=== PATIENT | male | born 1970 | race Caucasian/White ===

== ENCOUNTER 2018-10-12 15:52 | Inpatient (IN) | payer OTHER ==
[~2018-10-12] VITALS: Ht 182.9 cm; Wt 160.8 kg
[2018-10-12 17:30] VITALS: BP 140/78; PULSE 93; RESP 18
--- NOTE | 2018-10-12 18:04 | NUR ---
Transfer Notes Patient is a transfer from [facility] chief complaint of BLE pain/swelling and cough. Arrived on [place] assisted by 2 test facility engineer, alert and oriented verbally responsive, complaining of BLE pain. Noted with a nonproductive cough, able to ambulate with assistance. Dr Marroquin at bedside, oriented to unit fall precautions in place.
[2018-10-12] MEDS ORDERED: ZIPR20CA24 PO (18:15)
[2018-10-12] MEDS ORDERED: MTF1000T PO (18:20)
[2018-10-12] MEDS ORDERED: TIOT18CA INHALATION (18:20)
[2018-10-12] MEDS ORDERED: ATOR40TA68 PO (18:20)
[2018-10-12] MEDS ORDERED: LANT3I SC (18:20)
[2018-10-12] MEDS ORDERED: ONDANSETRON 4 MG INJ IV PRN (18:30)
[2018-10-12] MEDS ORDERED: NACL 0.9% 3 ML SYG IV SCH (18:30)
[2018-10-12] MEDS ORDERED: ACETAMINOPHEN 325 MG TAB PO PRN (18:30)
--- NOTE | 2018-10-12 18:39 | HP ---
Date/Time of Note Date/Time of Note DATE: 10/12/18 TIME: 18:20 Assessment/Plan VTE Prophylaxis Pharmacological prophylaxis: LMWH Assessment/Plan Assessment/Plan 48 yo man history of IDDM, meth use, schizophrenia presents with R leg cellulitis and cough #R leg cellulitis - Cellulitis of R mid leg and purulent drainage from old wounds on feet. - Will start empiric vanco/zosyn - Consult podiatry for debridement. #Cough - CXR at outside ED unremarkable, but history is concerning... will repeat - Will resume previous spiriva - Albuterol prn #Hyperglycemia #IDDM - Resume home glargine 40 BID - Sliding scale - Will likely need mealtime aspart, will evaluate needs tomorrow. #HTN - Cont home losartan/HCTZ #Schizophrenia - Cont home geodon #Smoker - nicotine patch while inpatient DVT: lovenox GI: PPI HPI/ROS Admit Date/Time Admit Date/Time Oct 12, 2018 at 17:33 Hx of Present Illness Mr. Hernandez is a 48 yo man with history of IDDM who presents with two weeks of cough and leg pain. He was in his usual state of health until 2 weeks ago. At that time he developed cough productive of "fluorescent green" sputum and mild shortness of breath. He hasn't taken much for the cough except lozenges, which haven't helped. Also had intermittent fever during this time. He also developed R mid quintanilla redness and swelling and pain. 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 During this time he's had subjective fevers. He's had diabetes for several years and has multiple toe amputations on the L foot, on the R foot he had a great toe amputation. All are over a year old. He presented to the [place] ED where he was found to have glucose 575, otherwise labs unremarkable. He was given insulin and started on vanco/zosyn. His insurance capitated him to [facility] so he was transferred here for admission. ROS Denies weight loss, anorexia, fatigue, headache, vision changes, chest pain/pressure/palpitations, nausea, vomiting, diarrhea, constipation, abdominal pain, hematuria, dysuria, melena, hematochezia. He DOES report polydipsia and polyuria in the past few days. PMH/Family/Social Past Medical History IDDM Dyslipidemia COPD (previously on Spiriva, ran out a few months ago and hasn't refilled it) Schizophrenia on Geodon HTN Coded Allergies: No Known Drug Allergies (Verified Allergy, Unknown, 10/12/18) Past Surgical History Multiple toe amputations Social History Lives in transitional housing, unemployed. Alcohol Use: none Smoking Status: Current every day smoker (1 ppd) Drug Use: other (Methamphetamine, last used 2 weeks ago. ) Exam/Review of Systems Exam Exam Gen: Morbidly obese man well appearing no acute distress. Eyes: PERRL, no icterus HEENT: Clear oropharynx moist mucous membranes Neck: No lymphadenopathy. Slightly sore anteriorly Card: Regular rate and rhythm, no murmurs Pulm: Clear to auscultation bilaterally Abd: Soft, nontender, nondistended. Ext: L foot multiple toe amputations; small black eschar on dorsal surface near where 3rd toe should be. R mid quintanilla with tense edema, induration, erythema, tenderness. R foot with great toe amputation and black eschar. Skin: warm dry well perfused. REGINO PATEL MD Oct 12, 2018 18:32
[2018-10-12] MEDS: PIPER-TAZO 3.375 GM IV (PMX) 100 ML IVPB SCH (18:46)
[2018-10-12] MEDS ORDERED: GLUCOSE GEL 15 GRAM TUBE BUCCAL PRN (19:00)
[2018-10-12] MEDS ORDERED: VANCOMYCIN IV PER PHARMACY XX SCH (19:00)
[2018-10-12] MEDS ORDERED: GLUCAGON 1 MG INJ IM PRN (19:00)
[2018-10-12] MEDS ORDERED: ALBUTEROL/IPRATROPIUM (NEB) 3 ML AMP HHN PRN (19:00)
[2018-10-12] MEDS ORDERED: DEXTROSE 50% 50 ML SYRINGE IV PRN ×2 (19:00)
[2018-10-12] MEDS ORDERED: GLUCOSE GEL 15 GRAM TUBE PO PRN ×2 (19:00)
[2018-10-12 20:00] VITALS: BP 138/66; PULSE 95; RESP 18
[2018-10-12] MEDS ORDERED: VANCOMYCIN 2 GM in SOD CHLORIDE 0.9% 500 ML IVPB ONE (20:00)
[2018-10-12] MEDS ORDERED: morphine 4 MG/ML VIAL IV STA (20:04)
--- NOTE | 2018-10-12 20:22 | CONS ---
Date/Time of Note Date/Time of Note DATE: 10/12/18 TIME: 20:21 Assessment/Plan Assessment/Plan Assessment/Plan 1) Diabetic foot ulcer b/l 2) RLE cellulitis 3) Edema 4) Pain in limb RLE 5) DM2 with peripheral neuropathy 6) Hx of digit amputation b/l 7) Schizophrenia Plan: Consent obtained and performed b/l excisional debridement of skin/subQ of b/l foot ulcer sites using a rock picker scissor, and scalpel blade. Necrotic, hyperk eratotic tissue, and biofilm was removed from wound sites. Copious betadine and saline irrigation used at the wound sites. Less than 20cm2 area of debridement performed. Wound cultures obtained. Reviewed X-rays no soft tissue emphysema or acute fracture fragments appreciated. IV abx per recommendations. Keep heels offloaded with pillows. Non-invasive arterial studies ordered. Medical decisions, treatment, and plan coordinated with Dr. Carter. Results 24hrs Laboratory Tests Test 10/12/18 18:53 Bedside Glucose 320 H Consultation Date/Type/Reason Admit Date/Time Oct 12, 2018 at 17:33 Hx of Present Illness 48 y/o diabetic male with hx of schziophrenia and multiple foot surgeries presents to the floor with complaints of bilateral scab formations and purulent drainage to the right great toe amputation site. Patient states that for the past 6 months noticed worsening changes to the right foot wound and to lesser degree of his left foot. Patient states that when he stands and walks a lot he notices increased drainage to the right foot. Patient states he was in skilled nursing and noted that they were healed at that point during his incarceration. Patient reports throbbing pain to the right foot which is worsened with direct pressure and relieved with rest. ROS: Denies weight loss, anorexia, fatigue, headache, vision changes, chest pain/pressure/palpitations, nausea, vomiting, diarrhea, constipation, abdominal pain, hematuria, dysuria, melena, hematochezia. He DOES report polydipsia and polyuria in the past few days. Past Medical History IDDM Dyslipidemia COPD (previously on Spiriva, ran out a few months ago and hasn't refilled it) Schizophrenia on Geodon HTN Medications Current Medications IV Flush (NS 3 ml) 3 ml PER PROTOCOL IV ; Start 10/12/18 at 18:30 Ondansetron HCl (Zofran Inj) 4 mg Q6H PRN IV NAUSEA AND/OR VOMITING; Start 10/12/18 at 18:30 Acetaminophen (Tylenol Tab) 650 mg Q6H PRN PO PAIN; Start 10/12/18 at 18:30 Acetaminophen/ Hydrocodone Bitart ([place] (5/325)) 1 tab Q6H PRN PO BREAKTHROUGH PAIN; Start 10/12/18 at 18:30 Enoxaparin Sodium (Lovenox) 30 mg DAILY SC ; Start 10/13/18 at 09:00 Atorvastatin Calcium (Lipitor) 40 mg QHS PO ; Start 10/12/18 at 21:00 Tiotropium [place] (Spiriva) 1 inh DAILY INH ; Start 10/13/18 at 09:00 Ziprasidone (Geodon) 40 mg BID PO ; Start 10/12/18 at 21:00 Diagnostic Test (Pha) (Accu-Chek) 1 ea 02 XX ; Start 10/13/18 at 02:00 Insulin Glargine (Lantus) 40 units BID SC ; Start 10/12/18 at 21:00 Insulin Aspart (Novolog Insulin Pen) NOVOLOG *MODERATE* ALGORITHM WITH MEALS BEDTIME SC ; Start 10/12/18 at 21:00 Piperacillin Sod/ Tazobactam Sod 100 ml @ 200 mls/hr Q6 IVPB Last administered on 10/12/18at 18:46; Admin Dose 200 MLS/HR; Start 10/12/18 at 19:00 Vancomycin HCl (Vanco Iv Per Pharmacy) VANCOMYCIN PER PHARMACY PER PROTOCOL XX ; Start 10/12/18 at 19:00 Albuterol/ Ipratropium (Duoneb) 3 ml Q4H RESP THERAPY PRN HHN SHORTNESS OF BREATH; Start 10/12/18 at 19:00 Losartan Potassium (Cozaar) 50 mg DAILY PO ; Start 10/13/18 at 09:00 Hydrochlorothiazide (Hydrochlorothiazide) 12.5 mg DAILY PO ; Start 10/13/18 at 09:00 Nicotine (Nicoderm 21 Mg/ 24hr) 1 patch DAILY TRANSDERM ; Start 10/12/18 at 19:00 Miscellaneous Information 1 ea NOTE XX ; Start 10/12/18 at 19:00 Glucose (Glutose) 15 gm Q15M PRN PO DECREASED GLUCOSE; Start 10/12/18 at 19:00 Glucose (Glutose) 22.5 gm Q15M PRN PO DECREASED GLUCOSE; Start 10/12/18 at 19:00 Dextrose (D50w Syringe) 25 ml Q15M PRN IV DECREASED GLUCOSE; Start 10/12/18 at 19:00 Dextrose (D50w Syringe) 50 ml Q15M PRN IV DECREASED GLUCOSE; Start 10/12/18 at 19:00 Glucagon (Glucagen) 1 mg Q15M PRN IM DECREASED GLUCOSE; Start 10/12/18 at 19:00 Glucose (Glutose) 15 gm Q15M PRN BUCCAL DECREASED GLUCOSE; Start 10/12/18 at 19:00 Vancomycin HCl 2 gm/Sodium Chloride 500 ml @ 125 mls/hr ONCE ONCE IVPB ; Start 10/12/18 at 20:00; Stop 10/12/18 at 23:59 Influenza Virus Vaccine Quadrival (Fluzone) 0.5 ml ONCE ONCE IM* ; Start 10/13/18 at 09:00; Stop 10/13/18 at 09:01 Allergies: Coded Allergies: No Known Drug Allergies (Verified Allergy, Unknown, 10/12/18) Past Surgical History Multiple digit amputations Family History Significant Family History: no pertinent family hx Social History Alcohol Use: none Smoking Status: Current every day smoker (1 ppd) Drug Use: other (Methamphetamine, last used 2 weeks ago. ) Exam/Review of Systems Vital Signs Vitals Vital Signs Date Temp Pulse Resp B/P (MAP) Pulse Ox O2 O2 Flow FiO2 Time Delivery Rate 10/12/18 98.2 93 18 140/78 90 Room Air 17:30 (98) Exam DP/PT and popliteal pulses weakly palpable Right leg erythema noted at mid tibial region Right hallux with eschar formation and upon post debridement a full thickness ulcer 2.5 x 1.8 x 0.3cm. Unable to express purulence, no proximal streaking noted, no probing to bone. Surrounding HPK tissue noted Left dorsal foot with eschar formation and upon post debridement a full thickness ulcer 0.6 x 0.4 x 0.2cm. Unable to express purulence, no proximal streaking noted, no probing to bone. Surrounding HPK tissue noted Absent protective sensations R hallux amputation noted L hallux and lesser digit amputations appreciated Mycotic toe nails Pain on palpation to right hallux wound Muscle strength 5/5 in all compartments of the foot. Medications Medications Current Medications IV Flush (NS 3 ml) 3 ml PER PROTOCOL IV ; Start 10/12/18 at 18:30 Ondansetron HCl (Zofran Inj) 4 mg Q6H PRN IV NAUSEA AND/OR VOMITING; Start 10/12/18 at 18:30 Acetaminophen (Tylenol Tab) 650 mg Q6H PRN PO PAIN; Start 10/12/18 at 18:30 Acetaminophen/ Hydrocodone Bitart ([place] (5/325)) 1 tab Q6H PRN PO BREAKTHROUGH PAIN; Start 10/12/18 at 18:30 Enoxaparin Sodium (Lovenox) 30 mg DAILY SC ; Start 10/13/18 at 09:00 Atorvastatin Calcium (Lipitor) 40 mg QHS PO ; Start 10/12/18 at 21:00 Tiotropium [place] (Spiriva) 1 inh DAILY INH ; Start 10/13/18 at 09:00 Ziprasidone (Geodon) 40 mg BID PO ; Start 10/12/18 at 21:00 Diagnostic Test (Pha) (Accu-Chek) 1 ea 02 XX ; Start 10/13/18 at 02:00 Insulin Glargine (Lantus) 40 units BID SC ; Start 10/12/18 at 21:00 Insulin Aspart (Novolog Insulin Pen) NOVOLOG *MODERATE* ALGORITHM WITH MEALS BEDTIME SC ; Start 10/12/18 at 21:00 Piperacillin Sod/ Tazobactam Sod 100 ml @ 200 mls/hr Q6 IVPB Last administered on 10/12/18at 18:46; Admin Dose 200 MLS/HR; Start 10/12/18 at 19:00 Vancomycin HCl (Vanco Iv Per Pharmacy) VANCOMYCIN PER PHARMACY PER PROTOCOL XX ; Start 10/12/18 at 19:00 Albuterol/ Ipratropium (Duoneb) 3 ml Q4H RESP THERAPY PRN HHN SHORTNESS OF BREATH; Start 10/12/18 at 19:00 Losartan Potassium (Cozaar) 50 mg DAILY PO ; Start 10/13/18 at 09:00 Hydrochlorothiazide (Hydrochlorothiazide) 12.5 mg DAILY PO ; Start 10/13/18 at 09:00 Nicotine (Nicoderm 21 Mg/ 24hr) 1 patch DAILY TRANSDERM ; Start 10/12/18 at 19:00 Miscellaneous Information 1 ea NOTE XX ; Start 10/12/18 at 19:00 Glucose (Glutose) 15 gm Q15M PRN PO DECREASED GLUCOSE; Start 10/12/18 at 19:00 Glucose (Glutose) 22.5 gm Q15M PRN PO DECREASED GLUCOSE; Start 10/12/18 at 19:00 Dextrose (D50w Syringe) 25 ml Q15M PRN IV DECREASED GLUCOSE; Start 10/12/18 at 19:00 Dextrose (D50w Syringe) 50 ml Q15M PRN IV DECREASED GLUCOSE; Start 10/12/18 at 19:00 Glucagon (Glucagen) 1 mg Q15M PRN IM DECREASED GLUCOSE; Start 10/12/18 at 19:00 Glucose (Glutose) 15 gm Q15M PRN BUCCAL DECREASED GLUCOSE; Start 10/12/18 at 19:00 Vancomycin HCl 2 gm/Sodium Chloride 500 ml @ 125 mls/hr ONCE ONCE IVPB ; Start 10/12/18 at 20:00; Stop 10/12/18 at 23:59 Influenza Virus Vaccine Quadrival (Fluzone) 0.5 ml ONCE ONCE IM* ; Start 10/13/18 at 09:00; Stop 10/13/18 at 09:01 POOL CASTELLANOS DPM Oct 12, 2018 20:22
[2018-10-12] MEDS: ATORVASTATIN 40 MG TAB PO SCH (20:45)
[2018-10-12] MEDS: ZIPRASIDONE 20 MG CAP PO SCH (20:45)
--- NOTE | 2018-10-12 21:39 | NUR ---
SEEN AND DEBRIDEMENT OF RIGHT FOOT WAS DONE BY JASMIN LANZA ALEX AROUND 2019. PAIN MEDICATION WAS ADMINISTERED PER ORDERED DURING THE PROCEDURE. WOUND SPECIMEN WAS SENT TO THE LABORATORY FOR CULTURE AND WOUND CARE/DRESSING WAS ORDERED. PATIENT TOLERATED THE PROCEDURE WELL. DINNER TRAY WAS SERVED AFTER AND INSTRUCTED THE PATIENT THAT HIS BLOOD SUGAR WILL CHECKED AFTER 2 HOURS.
--- NOTE | 2018-10-12 21:49 | NUR ---
VANCOMYCIN PER RX Current ABXs: VANCOMYCIN, ZOSYN 48 yo male; HT 6'; WT 160.8 KG Levels/Significant Labs: 10/12 SCR 1.4; WBC 7.7 Comments/Plan: VANCO 1 GM IV X 1 (GIVEN @[facility] ER), THEN ADDITIONAL 2 GM FOR TOTAL LD 3 GM. THEN START VANCO 2 GM IV Q12H.
[2018-10-12] MEDS: NICOTINE (21 MG/24 HR) PATCH TRANSDERM SCH (22:12)
[2018-10-12] MEDS: INSULIN ASPART [NOVOLOG] 3 ML PEN SC SCH (22:17)
[2018-10-12] MEDS: INSULIN GLARGINE [LANTus] (100 UNITS/ML) SYG SC SCH (22:18)
[2018-10-13] MEDS: PIPER-TAZO 3.375 GM IV (PMX) 100 ML IVPB SCH ×4 (00:31→17:27)
[2018-10-13 02:00] VITALS: BP 115/66; PULSE 87; RESP 18
[2018-10-13] MEDS: ACCU-CHEK XX SCH (02:00)
--- NOTE | 2018-10-13 04:15 | NUR ---
SHIFT REPORT: Patient remains stable up to this time. no s/sx of hypo/hyperglycemia was noted. continue on IV antibiotic Vanco and Zosyn as ordered with no adverse reaction was noted.Patient was able to sleep comfortably. denies pain and discomfort at this time. Instructed to call for assistance bed alarm is on. hourly rounding was done. will continue to monitor.
[2018-10-13 07:44] VITALS: BP 133/69; PULSE 75; RESP 20
[2018-10-13] MEDS: INSULIN ASPART [NOVOLOG] 3 ML PEN SC SCH ×5 (08:26→20:37)
[2018-10-13] MEDS: ENOXAPARIN 30 MG/0.3 ML SYG SC SCH (08:27)
[2018-10-13] MEDS: INSULIN GLARGINE [LANTus] (100 UNITS/ML) SYG SC SCH ×2 (08:27→20:38)
[2018-10-13] MEDS: LOSARTAN 50 MG TAB PO SCH (08:28)
[2018-10-13] MEDS: TIOTROPIUM 18 MCG CAPSULE INHA DEV INH SCH (08:28)
[2018-10-13] MEDS: NICOTINE (21 MG/24 HR) PATCH TRANSDERM SCH (08:29)
[2018-10-13] MEDS: VANCOMYCIN 2 GM in SOD CHLORIDE 0.9% 500 ML IVPB SCH ×2 (08:31→20:32)
[2018-10-13] MEDS: ZIPRASIDONE 20 MG CAP PO SCH ×2 (08:31→20:34)
[2018-10-13] MEDS: SODIUM HYPOCHLORITE (1/40) 1 APPLIC BTL IRR SCH (08:48)
[2018-10-13] MEDS ORDERED: INFLUENZA VIRUS VACCINE 0.5 ML (DISPENSING) IM* ONE (09:00)
[2018-10-13] MEDS: HYDROCHLOROTHIAZIDE 12.5 MG CAP PO SCH (09:27)
[2018-10-13] MEDS ORDERED: GUAIFENESIN 20 MG/ML 5ML CUP PO PRN (11:30)
--- NOTE | 2018-10-13 17:07 | PN ---
Date/Time of Note Date/Time of Note DATE: 10/13/18 TIME: 17:02 Assessment/Plan VTE Prophylaxis Risk score (from Ns)>0 risk: 3 SCD applied (from Ns): No SCD contraindicated: low risk/ambulating Pharmacological prophylaxis: LMWH Pharm contraindication: low risk/ambulating Lines/Catheters IV Catheter Type (from [facility] [place]): [place] Assessment/Plan Hospital Course 48 yo man history of IDDM, meth use, schizophrenia presents with R leg cellulitis and cough #R leg cellulitis - Cellulitis of R mid leg and purulent drainage from old wounds on feet. - Empiric vanco/zosyn - Debrided by Dr Lucia 10/12, pending culture sensitivities - arterial studies good flow #Cough - CXR with possible early infiltrate - Will resume previous spiriva - Albuterol prn - Antibiotics as above #Hyperglycemia #IDDM - Resume home glargine 40 BID - Sliding scale - Mealtime aspart #HTN - Cont home losartan/HCTZ #Schizophrenia - Cont home geodon #Smoker - nicotine patch while inpatient DVT: lovenox GI: PPI Result Diagram: 10/13/18 0533 10/13/18 0533 Subjective 24 Hr Interval Summary Free Text/Dictation No acute overnight events. Patient feeling well overall. Still with cough and sputum. He is ambulating to restroom okay without needing walker. Exam/Review of Systems Vital Signs Vitals Vital Signs Date Temp Pulse Resp B/P (MAP) Pulse Ox O2 O2 Flow FiO2 Time Delivery Rate 10/13/18 97.8 75 20 133/69 95 Room Air 07:44 (90) Intake and Output 10/12/18 10/12/18 10/13/18 1515:00 23:00 07:00 IntakeIntake Total 580 ml 820 ml OutputOutput Total 300 ml BalanceBalance 580 ml 520 ml Exam Gen: Morbidly obese man well appearing no acute distress. Eyes: PERRL, no icterus HEENT: Clear oropharynx moist mucous membranes Neck: No lymphadenopathy. Slightly sore anteriorly Card: Regular rate and rhythm, no murmurs Pulm: Clear to auscultation bilaterally Abd: Soft, nontender, nondistended. Ext: L foot multiple toe amputations; clean based ulcer at 3rd toe. R mid quintanilla with tense edema, induration, erythema, tenderness. R foot with great toe amputation and clean based ulcer. Skin: warm dry well perfused. Medications Medications Current Medications IV Flush (NS 3 ml) 3 ml PER PROTOCOL IV ; Start 10/12/18 at 18:30 Ondansetron HCl (Zofran Inj) 4 mg Q6H PRN IV NAUSEA AND/OR VOMITING; Start 10/12/18 at 18:30 Acetaminophen (Tylenol Tab) 650 mg Q6H PRN PO PAIN; Start 10/12/18 at 18:30 Acetaminophen/ Hydrocodone Bitart ([place] (5/325)) 1 tab Q6H PRN PO BREAKTHROUGH PAIN; Start 10/12/18 at 18:30 Enoxaparin Sodium (Lovenox) 30 mg DAILY SC Last administered on 10/13/18at 08:27; Admin Dose 30 MG; Start 10/13/18 at 09:00 Atorvastatin Calcium (Lipitor) 40 mg QHS PO Last administered on 10/12/18at 20:45; Admin Dose 40 MG; Start 10/12/18 at 21:00 Tiotropium [place] (Spiriva) 1 inh DAILY INH Last administered on 10/13/18at 08:28; Admin Dose 1 INH; Start 10/13/18 at 09:00 Ziprasidone (Geodon) 40 mg BID PO Last administered on 10/12/18at 20:45; Admin Dose 40 MG; Start 10/12/18 at 21:00 Diagnostic Test (Pha) (Accu-Chek) 1 ea 02 XX Last administered on 10/13/18at 02:00; Admin Dose 1 EA; Start 10/13/18 at 02:00 Insulin Glargine (Lantus) 40 units BID SC Last administered on 10/13/18at 08:27; Admin Dose 40 UNITS; Start 10/12/18 at 21:00 Insulin Aspart (Novolog Insulin Pen) NOVOLOG *MODERATE* ALGORITHM WITH MEALS BEDTIME SC Last administered on 10/13/18at 12:30; Admin Dose 10 UNIT; Start 10/12/18 at 21:00 Piperacillin Sod/ Tazobactam Sod 100 ml @ 200 mls/hr Q6 IVPB Last administered on 10/13/18at 12:32; Admin Dose 200 MLS/HR; Start 10/12/18 at 19:00 Vancomycin HCl (Vanco Iv Per Pharmacy) VANCOMYCIN PER PHARMACY PER PROTOCOL XX ; Start 10/12/18 at 19:00 Albuterol/ Ipratropium (Duoneb) 3 ml Q4H RESP THERAPY PRN HHN SHORTNESS OF BREATH; Start 10/12/18 at 19:00 Losartan Potassium (Cozaar) 50 mg DAILY PO Last administered on 10/13/18at 08:28; Admin Dose 50 MG; Start 10/13/18 at 09:00 Hydrochlorothiazide (Hydrochlorothiazide) 12.5 mg DAILY PO Last administered on 10/13/18at 09:27; Admin Dose 12.5 MG; Start 10/13/18 at 09:00 Nicotine (Nicoderm 21 Mg/ 24hr) 1 patch DAILY TRANSDERM Last administered on at 08:29; Admin Dose 1 PATCH; Start 10/12/18 at 19:00 Miscellaneous Information 1 ea NOTE XX ; Start 10/12/18 at 19:00 Glucose (Glutose) 15 gm Q15M PRN PO DECREASED GLUCOSE; Start 10/12/18 at 19:00 Glucose (Glutose) 22.5 gm Q15M PRN PO DECREASED GLUCOSE; Start 10/12/18 at 19:00 Dextrose (D50w Syringe) 25 ml Q15M PRN IV DECREASED GLUCOSE; Start 10/12/18 at 19:00 Dextrose (D50w Syringe) 50 ml Q15M PRN IV DECREASED GLUCOSE; Start 10/12/18 at 19:00 Glucagon (Glucagen) 1 mg Q15M PRN IM DECREASED GLUCOSE; Start 10/12/18 at 19:00 Glucose (Glutose) 15 gm Q15M PRN BUCCAL DECREASED GLUCOSE; Start 10/12/18 at 19:00 Vancomycin HCl 2 gm/Sodium Chloride 500 ml @ 125 mls/hr Q12H IVPB Last administered on 10/13/18at 08:31; Admin Dose 125 MLS/HR; Start 10/13/18 at 08:00 Sodium Hypochlorite ([place]akin'S (Dilute )) 1 applic DAILY IRR Last administered on 10/13/18at 08:48; Admin Dose 1 APPLIC; Start 10/13/18 at 09:00 Miscellaneous Information (*Rx Drug Level Order Reminder*) VANCOMYCIN TROUGH AT 0700 ONCE ONCE XX ; Start 10/14/18 at 07:00; Stop 10/14/18 at 07:01 Guaifenesin (Robitussin Liquid Cup) 200 mg Q4H PRN PO cough; Start 10/13/18 at 11:30 REGINO PATEL MD Oct 13, 2018 17:07
--- NOTE | 2018-10-13 18:55 | NUR ---
End of Shift Notes S/P I&D with Dr Lucia, wound care provided as ordered, kept clean and dry hourly roundings done, fall precautions in place. No signs of distress, vitals stable.
[2018-10-13 20:24] VITALS: BP 134/65; PULSE 98; RESP 18
[2018-10-13] MEDS: ATORVASTATIN 40 MG TAB PO SCH (20:33)
[2018-10-14] MEDS: PIPER-TAZO 3.375 GM IV (PMX) 100 ML IVPB SCH ×5 (00:11→23:24)
[2018-10-14 01:50] VITALS: BP 125/66; PULSE 91; RESP 18
[2018-10-14] MEDS: ACCU-CHEK XX SCH (02:14)
--- NOTE | 2018-10-14 04:34 | NUR ---
SHIFT REPORT: Patient remains stable up to this time.Continue on IV antibiotic with no adverse reaction noted. Patient refused [place] last night even after benefits was explained. no s/sx of hypo/hyperglycemia.instructed to call for assistance.call light placed within reach.will continue to monitor.
[2018-10-14 07:29] VITALS: BP 138/73; PULSE 82; RESP 20
--- NOTE | 2018-10-14 08:31 | NUR ---
RX NOTE RE: VANCOMYCIN DAY#3 OF VANCOMYCIN PER RX BUN/SCR: 07/11. TMAX: 98.7 WBC: 8.6 ALLERGIES: NKDA OTHER ABX: ZOSYN VANCO TROUGH: 22.2 VANCO TROUGH IS SUPRATHERAPEUTIC. HOLD VANCO 2GM IVPB DOSE AT 0800. ADJUST DOSE TO VANCOMYCIN 1.25GM IV [id number] TO START LATER TODAY. PHARMACY TO FOLLOW.
[2018-10-14] MEDS: INSULIN ASPART [NOVOLOG] 3 ML PEN SC SCH ×7 (08:33→21:27)
[2018-10-14] MEDS: NICOTINE (21 MG/24 HR) PATCH TRANSDERM SCH (08:50)
[2018-10-14] MEDS: TIOTROPIUM 18 MCG CAPSULE INHA DEV INH SCH (08:51)
[2018-10-14] MEDS: LOSARTAN 50 MG TAB PO SCH (08:55)
[2018-10-14] MEDS: HYDROCHLOROTHIAZIDE 12.5 MG CAP PO SCH (08:55)
[2018-10-14] MEDS: SODIUM HYPOCHLORITE (1/40) 1 APPLIC BTL IRR SCH (08:57)
[2018-10-14] MEDS: ZIPRASIDONE 20 MG CAP PO SCH ×3 (09:00→21:28)
[2018-10-14] MEDS: INSULIN GLARGINE [LANTus] (100 UNITS/ML) SYG SC SCH ×2 (09:16→21:24)
[2018-10-14] MEDS: ENOXAPARIN 30 MG/0.3 ML SYG SC SCH (09:16)
[2018-10-14 13:19] VITALS: BP 111/66; PULSE 85; RESP 18
--- NOTE | 2018-10-14 14:25 | PN ---
Date/Time of Note Date/Time of Note DATE: 10/14/18 TIME: 14:13 Assessment/Plan VTE Prophylaxis Risk score (from Nsg)>0 risk: 3 SCD applied (from Ns): No SCD contraindicated: other (no) Pharmacological prophylaxis: LMWH Lines/Catheters IV Catheter Type (from Nrs): Saline Lock Assessment/Plan Hospital Course 48 yo man history of IDDM, meth use, schizophrenia presents with R leg cell ulitis and cough #R leg cellulitis - Cellulitis of R mid leg and purulent drainage from old wounds on feet. - Empiric vanco/zosyn - Debrided by Dr Lucia 10/12, pending culture sensitivities - arterial studies good flow #Cough - CXR with possible early infiltrate - Will resume previous spiriva - Albuterol prn, guaifenasin prn. - Low suspicion for pneumonia, on zosyn for cellulitis #Hyperglycemia #IDDM - home glargine 40 BID - Sliding scale - Mealtime aspart #HTN - Cont home losartan/HCTZ #Schizophrenia - Cont home geodon #Smoker - nicotine patch while inpatient DVT: lovenox GI: PPI Result Diagram: 10/14/184 10/14/18 0444 Subjective 24 Hr Interval Summary Free Text/Dictation No acute overnight events. Patient is doing well. Still reports cough with green sputum. Hasn't requested guaifenesin for it. Reports that calf pain is still about the same. Able to ambulate to bathroom. Exam/Review of Systems Vital Signs Vitals Vital Signs Date Temp Pulse Resp B/P (MAP) Pulse Ox O2 O2 Flow FiO2 Time Delivery Rate 10/14/18 98.4 85 18 111/66 95 Room Air 13:19 (81) Intake and Output 10/13/18 10/13/18 10/14/18 1515:00 23:00 07:00 IntakeIntake Total 1640 ml 580 ml 700 ml BalanceBalance 1640 ml 580 ml 700 ml Exam Gen: Morbidly obese man well appearing no acute distress. Eyes: PERRL, no icterus HEENT: Clear oropharynx moist mucous membranes Neck: No lymphadenopathy. Slightly sore anteriorly Card: Regular rate and rhythm, no murmurs Pulm: Clear to auscultation bilaterally Abd: Soft, nontender, nondistended. Ext: L foot multiple toe amputations; clean based ulcer at 3rd toe. R mid quintanilla with tense edema, induration, erythema, tenderness. R foot with great toe amputation and clean based ulcer. Skin: warm dry well perfused. Medications Medications Current Medications IV Flush (NS 3 ml) 3 ml PER PROTOCOL IV ; Start 10/12/18 at 18:30 Ondansetron HCl (Zofran Inj) 4 mg Q6H PRN IV NAUSEA AND/OR VOMITING; Start 10/12/18 at 18:30 Acetaminophen (Tylenol Tab) 650 mg Q6H PRN PO PAIN; Start 10/12/18 at 18:30 Acetaminophen/ Hydrocodone Bitart ([place] (5/325)) 1 tab Q6H PRN PO BREAKTHROUGH PAIN; Start 10/12/18 at 18:30 Enoxaparin Sodium (Lovenox) 30 mg DAILY SC Last administered on 10/14/18 09:16; Admin Dose 30 MG; Start 10/13/18 at 09:00 Atorvastatin Calcium (Lipitor) 40 mg QHS PO Last administered on 10/13/18 20:33; Admin Dose 40 MG; Start 10/12/18 at 21:00 Tiotropium [place] (Spiriva) 1 inh DAILY INH Last administered on 10/14/18 08:51; Admin Dose 1 INH; Start 10/13/18 at 09:00 Ziprasidone (Geodon) 40 mg BID PO Last administered on 10/12/18at 20:45; Admin Dose 40 MG; Start 10/12/18 at 21:00 Diagnostic Test (Pha) (Accu-Chek) 1 ea 02 XX Last administered on 10/14/18 02:14; Admin Dose 1 EA; Start 10/13/18 at 02:00 Insulin Glargine (Lantus) 40 units BID SC Last administered on 10/14/18 09:16; Admin Dose 40 UNITS; Start 10/12/18 at 21:00 Insulin Aspart (Novolog Insulin Pen) NOVOLOG *MODERATE* ALGORITHM WITH MEALS BEDTIME SC Last administered on 10/14/18 12:30; Admin Dose 6 UNIT; Start 10/12/18 at 21:00 Piperacillin Sod/ Tazobactam Sod 100 ml @ 200 mls/hr Q6 IVPB Last administered on 10/14/18 12:23; Admin Dose 200 MLS/HR; Start 10/12/18 at 19:00 Vancomycin HCl (Vanco Iv Per Pharmacy) VANCOMYCIN PER PHARMACY PER PROTOCOL XX ; Start 10/12/18 at 19:00 Albuterol/ Ipratropium (Duoneb) 3 ml Q4H RESP THERAPY PRN HHN SHORTNESS OF BREATH; Start 10/12/18 at 19:00 Losartan Potassium (Cozaar) 50 mg DAILY PO Last administered on 10/14/18at 08:55; Admin Dose 50 MG; Start 10/13/18 at 09:00 Hydrochlorothiazide (Hydrochlorothiazide) 12.5 mg DAILY PO Last administered on 10/14/18at 08:55; Admin Dose 12.5 MG; Start 10/13/18 at 09:00 Nicotine (Nicoderm 21 Mg/ 24hr) 1 patch DAILY TRANSDERM Last administered on 10/14/18at 08:50; Admin Dose 1 PATCH; Start 10/12/18 at 19:00 Miscellaneous Information 1 ea NOTE XX ; Start 10/12/18 at 19:00 Glucose (Glutose) 15 gm Q15M PRN PO DECREASED GLUCOSE; Start 10/12/18 at 19:00 Glucose (Glutose) 22.5 gm Q15M PRN PO DECREASED GLUCOSE; Start 10/12/18 at 19:00 Dextrose (D50w Syringe) 25 ml Q15M PRN IV DECREASED GLUCOSE; Start 10/12/18 at 19:00 Dextrose (D50w Syringe) 50 ml Q15M PRN IV DECREASED GLUCOSE; Start 10/12/18 at 19:00 Glucagon (Glucagen) 1 mg Q15M PRN IM DECREASED GLUCOSE; Start 10/12/18 at 19:00 Glucose (Glutose) 15 gm Q15M PRN BUCCAL DECREASED GLUCOSE; Start 10/12/18 at 19:00 Sodium Hypochlorite (Dakin'S (Dilute 140)) 1 applic DAILY IRR Last administered on 10/14/18at 08:57; Admin Dose 1 APPLIC; Start 10/13/18 at 09:00 Guaifenesin (Robitussin Liquid Cup) 200 mg Q4H PRN PO cough; Start 10/13/18 at 11:30 Insulin Aspart (Novolog Insulin Pen) 10 unit WITH MEALS SC Last administered on 10/14/18at 12:30; Admin Dose 10 UNIT; Start 10/13/18 at 18:00 Vancomycin HCl 1.25 gm/Sodium Chloride 250 ml @ 83.333 mls/ hr Q12H IVPB ; Start 10/14/18 at 18:00 REGINO PATEL MD Oct 14, 2018 14:23
--- NOTE | 2018-10-14 18:20 | NUR ---
SHIFT SUMMARY: SEEN BY DR. CASTELLANOS AT BEDSIDE. DRESSING CHANGED TO BILATERAL FOOT. PT COMFORTABLE DURING PROCEDURE. NO COMPLAINTS NOTED DURING SHIFT. HOURLY ROUNDING RENDERED. SAFETY PRECAUTIONS MAINTAINED.NO SIGNIFICANT CHANGE OF CONDITION .ALL NEEDS ATTENDED AND RENDERED. CALL LIGHT WITHIN REACH.
[2018-10-14] MEDS: VANCOMYCIN 1.25 GM in SOD CHLORIDE 0.9% 250 ML IVPB SCH (18:36)
[2018-10-14 20:00] VITALS: BP 136/66; PULSE 82; RESP 19
--- NOTE | 2018-10-14 20:02 | PN ---
Date/Time of Note Date/Time of Note DATE: 10/14/18 TIME: 20:02 Assessment/Plan VTE Prophylaxis Risk score (from Nsg)>0 risk: 3 Pharmacological prophylaxis: heparin Lines/Catheters IV Catheter Type (from Nrsg): Saline Lock Assessment/Plan Hospital Course 48 y/o diabetic male with hx of schziophrenia and multiple foot surgeries presents to the floor with complaints of bilateral scab formations and purulent drainage to the right great toe amputation site. Patient states that for the past 6 months noticed worsening changes to the right foot wound and to lesser degree of his left foot. Patient states that when he stands and walks a lot he notices increased drainage to the right foot. Patient states he was in [facility] and noted that they were healed at that point during his incarceration. Patient reports throbbing pain to the right foot which is worsened with direct pressure and relieved with rest. Assessment/Plan 1) Diabetic foot ulcer RLE, left resolving 2) RLE cellulitis - improving 3) Edema 4) onyhcmoycosis 5) Pain in limb RLE 6) DM2 with peripheral neuropathy 7) Hx of digit amputation b/l 8) Schizophrenia Plan: excisional debridement of skin/subQ of right foot ulcer site using a pick up driver and scissor. Necrotic, hyperkeratotic tissue, and biofilm was removed from wound sites. Copious betadine and saline irrigation used at the wound sites. Less than 20cm2 area of debridement performed. Wound cultures showing gram neg april, strep agalactiae group B. Reviewed X-rays no soft tissue emphysema or acute fracture fragments appreciated. IV abx per recommendations. Keep heels offlo aded with pillows. Negative DVT, and hemodynamically stable arterial blood flow on noted on non-invasive arterial studies. Medical decisions, treatment, and plan coordinated with Dr. Carter. Result Diagram: 10/14/18 0444 10/14/18 0444 Results 24hrs Laboratory Tests Test 10/13/18 20:33 10/13/18 21:40 10/14/18 02:13 10/14/18 04:44 Bedside Glucose 308 H 211 144 White Blood 8.6 Count Red Blood Count 5.04 Hemoglobin 13.7 L Hematocrit 43.4 Mean Corpuscular 86.1 Volume Mean Corpuscular 27.2 L Hemoglobin Mean Corpuscular 31.6 L Hemoglobin Tamanna nt Red Cell 14.3 Distribution Width Platelet Count 334 Mean Platelet 9.4 Volume Immature 2.900 H Granulocytes % Neutrophils % 48.1 Lymphocytes % 35.5 Monocytes % 8.0 Eosinophils % 4.1 Basophils % 1.4 Nucleated Red 0.0 Blood Cells % Immature 0.250 H Granulocytes # Neutrophils # 4.2 Lymphocytes # 3.1 H Monocytes # 0.7 Eosinophils # 0.4 Basophils # 0.1 Nucleated Red 0.0 Blood Cells # Sodium Level 142 Potassium Level 4.5 Chloride Level 97 Carbon Dioxide 37 H Level Anion Gap 8 Blood Urea 22 H Nitrogen Creatinine 1.26 H Est Glomerular > 60 Filtrat Rate mL/min Glucose Level 135 # Calcium Level 9.3 Phosphorus Level 5.3 H Magnesium Level 1.9 Test 10/14/18 07:03 10/14/18 08:12 10/14/18 12:22 10/14/18 17:35 Vancomycin Level 22.2 *H Trough Bedside Glucose 160 232 H 162 Subjective 24 Hr Interval Summary Free Text/Dictation No acute events overnight. Exam/Review of Systems Vital Signs Vitals Vital Signs Date Temp Pulse Resp B/P (MAP) Pulse Ox O2 O2 Flow FiO2 Time Delivery Rate 10/14/18 98.4 85 18 111/66 95 Room Air 13:19 (81) Intake and Output 10/13/18 10/13/18 10/14/18 1515:00 23:00 07:00 IntakeIntake Total 1640 ml 580 ml 700 ml BalanceBalance 1640 ml 580 ml 700 ml Exam DP/PT and popliteal pulses weakly palpable Right leg erythema noted at mid tibial region Right hallux with eschar formation and upon post debridement a full thickness ulcer 1.5 x 1.4 x 0.2cm. Unable to express purulence, no proximal streaking noted, no probing to bone. Surrounding HPK tissue noted Left dorsal foot ulcer showing signs of epithelialization Absent protective sensations R hallux amputation noted L hallux and lesser digit amputations appreciated Mycotic toe nails Pain on palpation to right hallux wound Muscle strength 5/5 in all compartments of the foot. Medications Medications Current Medications IV Flush (NS 3 ml) 3 ml PER PROTOCOL IV ; Start 10/12/18 at 18:30 Ondansetron HCl (Zofran Inj) 4 mg Q6H PRN IV NAUSEA AND/OR VOMITING; Start 10/12/18 at 18:30 Acetaminophen (Tylenol Tab) 650 mg Q6H PRN PO PAIN; Start 10/12/18 at 18:30 Acetaminophen/ Hydrocodone Bitart ([place] (5/325)) 1 tab Q6H PRN PO BREAKTHROUGH PAIN; Start 10/12/18 at 18:30 Enoxaparin Sodium (Lovenox) 30 mg DAILY SC Last administered on 10/14/18 09:16; Admin Dose 30 MG; Start 10/13/18 at 09:00 Atorvastatin Calcium (Lipitor) 40 mg QHS PO Last administered on 10/13/18 20:33; Admin Dose 40 MG; Start 10/12/18 at 21:00 Tiotropium [place] (Spiriva) 1 inh DAILY INH Last administered on 10/14/18 08:51; Admin Dose 1 INH; Start 10/13/18 at 09:00 Ziprasidone (Geodon) 40 mg BID PO Last administered on 10/12/18 20:45; Admin Dose 40 MG; Start 10/12/18 at 21:00 Diagnostic Test (Pha) (Accu-Chek) 1 ea 02 XX Last administered on 10/14/18 02:14; Admin Dose 1 EA; Start 10/13/18 at 02:00 Insulin Glargine (Lantus) 40 units BID SC Last administered on 10/14/18 09:16; Admin Dose 40 UNITS; Start 10/12/18 at 21:00 Insulin Aspart (Novolog Insulin Pen) NOVOLOG *MODERATE* ALGORITHM WITH MEALS BEDTIME SC Last administered on 10/14/18 17:43; Admin Dose 2 UNIT; Start 10/12/18 at 21:00 Piperacillin Sod/ Tazobactam Sod 100 ml @ 200 mls/hr Q6 IVPB Last administered on 10/14/18 17:33; Admin Dose 200 MLS/HR; Start 10/12/18 at 19:00 Vancomycin HCl (Vanco Iv Per Pharmacy) VANCOMYCIN PER PHARMACY PER PROTOCOL XX ; Start 10/12/18 at 19:00 Albuterol/ Ipratropium (Duoneb) 3 ml Q4H RESP THERAPY PRN HHN SHORTNESS OF BREATH; Start 10/12/18 at 19:00 Losartan Potassium (Cozaar) 50 mg DAILY PO Last administered on 10/14/18 08:55; Admin Dose 50 MG; Start 10/13/18 at 09:00 Hydrochlorothiazide (Hydrochlorothiazide) 12.5 mg DAILY PO Last administered on 10/14/18at 08:55; Admin Dose 12.5 MG; Start 10/13/18 at 09:00 Nicotine (Nicoderm 21 Mg/ 24hr) 1 patch DAILY TRANSDERM Last administered on 10/14/18at 08:50; Admin Dose 1 PATCH; Start 10/12/18 at 19:00 Miscellaneous Information 1 ea NOTE XX ; Start 10/12/18 at 19:00 Glucose (Glutose) 15 gm Q15M PRN PO DECREASED GLUCOSE; Start 10/12/18 at 19:00 Glucose (Glutose) 22.5 gm Q15M PRN PO DECREASED GLUCOSE; Start 10/12/18 at 19:00 Dextrose (D50w Syringe) 25 ml Q15M PRN IV DECREASED GLUCOSE; Start 10/12/18 at 19:00 Dextrose (D50w Syringe) 50 ml Q15M PRN IV DECREASED GLUCOSE; Start 10/12/18 at 19:00 Glucagon (Glucagen) 1 mg Q15M PRN IM DECREASED GLUCOSE; Start 10/12/18 at 19:00 Glucose (Glutose) 15 gm Q15M PRN BUCCAL DECREASED GLUCOSE; Start 10/12/18 at 19:00 Sodium Hypochlorite (Dakin'S (Dilute )) 1 applic DAILY IRR Last admi nistered on 10/14/18at 08:57; Admin Dose 1 APPLIC; Start 10/13/18 at 09:00 Guaifenesin (Robitussin Liquid Cup) 200 mg Q4H PRN PO cough; Start 10/13/18 at 11:30 Insulin Aspart (Novolog Insulin Pen) 10 unit WITH MEALS SC Last administered on 10/14/18at 17:43; Admin Dose 10 UNIT; Start 10/13/18 at 18:00 Vancomycin HCl 1.25 gm/Sodium Chloride 250 ml @ 83.333 mls/ hr Q12H IVPB Last administered on 10/14/18at 18:36; Admin Dose 83.333 MLS/HR; Start 10/14/18 at 18:00 POOL CASTELLANOS DPM Oct 14, 2018 20:02
[2018-10-14] MEDS: ATORVASTATIN 40 MG TAB PO SCH (21:37)
[2018-10-15] MEDS: ACCU-CHEK XX SCH ×2 (02:00→21:41)
[2018-10-15 02:04] VITALS: BP 121/66; PULSE 88; RESP 18
[2018-10-15] MEDS: HYDROCODONE/APAP (5/325) TAB PO PRN ×2 (02:20→02:23)
[2018-10-15] MEDS: PIPER-TAZO 3.375 GM IV (PMX) 100 ML IVPB SCH ×3 (05:42→17:31)
--- NOTE | 2018-10-15 06:14 | NUR ---
END OF SHIFT SUMMARY Received patient in bed from Am shift on 10/14 at 1905. Alert and oriented x4. Vital signs WNL. Accucheck performed as ordered. Reported pain on left foot. Pain medication given as ordered. Patient verbalized pain relief. Wound treatment was done on 10/14 during AM shift. Dressing remains dry and intact. IV antibiotic given as ordered. Fall precautions initiated. Bed alarm is on, side rails up x2, bed in lowest position, call light within reach. No falls during shift. All needs attended. Will endorse to AM shift.
[2018-10-15] MEDS: VANCOMYCIN 1.25 GM in SOD CHLORIDE 0.9% 250 ML IVPB SCH ×2 (06:49→17:31)
[2018-10-15 07:46] VITALS: BP 123/67; PULSE 82; RESP 20
[2018-10-15] MEDS: INSULIN ASPART [NOVOLOG] 3 ML PEN SC SCH ×7 (08:29→21:00)
[2018-10-15] MEDS: INSULIN GLARGINE [LANTus] (100 UNITS/ML) SYG SC SCH ×2 (08:30→21:38)
[2018-10-15] MEDS: SODIUM HYPOCHLORITE (1/40) 1 APPLIC BTL IRR SCH (09:00)
[2018-10-15] MEDS: ZIPRASIDONE 20 MG CAP PO SCH ×2 (09:00→21:00)
[2018-10-15] MEDS: NICOTINE (21 MG/24 HR) PATCH TRANSDERM SCH (09:42)
[2018-10-15] MEDS: ENOXAPARIN 30 MG/0.3 ML SYG SC SCH (09:42)
[2018-10-15] MEDS: LOSARTAN 50 MG TAB PO SCH (09:48)
[2018-10-15] MEDS: HYDROCHLOROTHIAZIDE 12.5 MG CAP PO SCH (09:49)
[2018-10-15] MEDS: TIOTROPIUM 18 MCG CAPSULE INHA DEV INH SCH (09:52)
--- NOTE | 2018-10-15 13:51 | PN ---
Date/Time of Note Date/Time of Note DATE: 10/15/18 TIME: 13:44 Assessment/Plan VTE Prophylaxis Risk score (from Ns)>0 risk: 6 SCD applied (from Ns): No SCD contraindicated: low risk/ambulating Pharmacological prophylaxis: LMWH Lines/Catheters IV Catheter Type (from [facility]): Saline Lock Assessment/Plan Hospital Course 48 yo man history of IDDM, meth use, schizophrenia presents with R leg cellulitis and cough #R leg cellulitis - Cellulitis of R mid leg and purulent drainage from old wounds on feet. - Empiric vanco/zosyn - Debrided by Dr Lucia 10/12 - arterial studies good flow - Venous duplex negative for DVT - Cultures growing morganella and group B strep. Plan to discharge on ampicillin and fluoroquinolone #Cough - CXR with possible early infiltrate - Cont spiriva - Albuterol prn, guaifenasin prn. - Low suspicion for pneumonia, on zosyn for cellulitis #Hyperglycemia #IDDM - home glargine 40 BID - Sliding scale - Mealtime aspart #HTN - Cont home losartan/HCTZ #Schizophrenia - Cont home geodon #Smoker - nicotine patch while inpatient DVT: lovenox GI: PPI Dispo: PT to get out of bed. Then discharge on oral Abx with dressing changes per podiatry. Result Diagram: 10/15/1851810/15/18 0519 Results 24hrs Laboratory Tests Test 10/14/18 17:35 10/14/18 21:21 10/15/18 02:09 10/15/18 05:19 Bedside Glucose 162 231 H 164 White Blood 8.6 Count Red Blood Count 5.11 Hemoglobin 13.9 L Hematocrit 45.3 Mean Corpuscular 88.6 Volume Mean Corpuscular 27.2 L Hemoglobin Mean Corpuscular 30.7 L Hemoglobin Tamanna nt Red Cell 14.1 Distribution Width Platelet Count 364 Mean Platelet 9.4 Volume Immature 1.900 H Granulocytes % Neutrophils % 50.8 Lymphocytes % 34.9 Monocytes % 7.8 Eosinophils % 3.4 Basophils % 1.2 Nucleated Red 0.0 Blood Cells % Immature 0.160 H Granulocytes # Neutrophils # 4.4 Lymphocytes # 3.0 H Monocytes # 0.7 Eosinophils # 0.3 Basophils # 0.1 Nucleated Red 0.0 Blood Cells # Sodium Level 140 Potassium Level 4.4 Chloride Level 102 Carbon Dioxide 32 H Level Anion Gap 6 Blood Urea 20 Nitrogen Creatinine 1.30 H Est Glomerular 59 L Filtrat Rate mL/min Glucose Level 200 Calcium Level 9.4 Test 10/15/18 07:51 10/15/18 12:29 Bedside Glucose 182 208 Subjective 24 Hr Interval Summary Free Text/Dictation No acute overnight events. Cough is improving. Patient has no complaints. Exam/Review of Systems Vital Signs Vitals Vital Signs Date Temp Pulse Resp B/P (MAP) Pulse Ox O2 O2 Flow FiO2 Time Delivery Rate 10/15/18 98.6 82 20 123/67 97 Room Air 07:46 (85) Intake and Output 10/14/18 10/14/18 10/15/18 1515:00 23:00 07:00 IntakeIntake Total 1060 ml 1550 ml 200 ml BalanceBalance 1060 ml 1550 ml 200 ml Exam Gen: Morbidly obese man well appearing no acute distress. Eyes: PERRL, no icterus HEENT: Clear oropharynx moist mucous membranes Neck: No lymphadenopathy. Card: Regular rate and rhythm, no murmurs Pulm: Clear to auscultation bilaterally Abd: Soft, nontender, nondistended. Ext: L foot multiple toe amputations; clean based ulcer at 3rd toe. R mid quintanilla with tense edema, induration, erythema, tenderness. R foot with great toe amputation and clean based ulcer. Skin: warm dry well perfused. Medications Medications Current Medications IV Flush (NS 3 ml) 3 ml PER PROTOCOL IV ; Start 10/12/18 at 18:30 Ondansetron HCl (Zofran Inj) 4 mg Q6H PRN IV NAUSEA AND/OR VOMITING; Start 10/12/18 at 18:30 Acetaminophen (Tylenol Tab) 650 mg Q6H PRN PO PAIN; Start 10/12/18 at 18:30 Acetaminophen/ Hydrocodone Bitart ([place] (5/325)) 1 tab Q6H PRN PO BREAKTHROUGH PAIN Last administered on 10/15/18at 02:20; Admin Dose 1 TAB; Start 10/12/18 at 18:30 Enoxaparin Sodium (Lovenox) 30 mg DAILY SC Last administered on 10/15/18at 09:42; Admin Dose 30 MG; Start 10/13/18 at 09:00 Atorvastatin Calcium (Lipitor) 40 mg QHS PO Last administered on 10/14/18 21:37; Admin Dose 40 MG; Start 10/12/18 at 21:00 Tiotropium [place] (Spiriva) 1 inh DAILY INH Last administered on 10/15/18 09:52; Admin Dose 1 INH; Start 10/13/18 at 09:00 Ziprasidone (Geodon) 40 mg BID PO Last administered on 10/12/18 20:45; Admin Dose 40 MG; Start 10/12/18 at 21:00 Diagnostic Test (Pha) (Accu-Chek) 1 ea 02 XX Last administered on 10/14/18 02:14; Admin Dose 1 EA; Start 10/13/18 at 02:00 Insulin Glargine (Lantus) 40 units BID SC Last administered on 10/15/18 08:30; Admin Dose 40 UNITS; Start 10/12/18 at 21:00 Insulin Aspart (Novolog Insulin Pen) NOVOLOG *MODERATE* ALGORITHM WITH MEALS BEDTIME SC Last administered on 10/15/18 12:51; Admin Dose 4 UNIT; Start 10/12/18 at 21:00 Piperacillin Sod/ Tazobactam Sod 100 ml @ 200 mls/hr Q6 IVPB Last administered on 10/15/18 12:50; Admin Dose 200 MLS/HR; Start 10/12/18 at 19:00 Vancomycin HCl (Vanco Iv Per Pharmacy) VANCOMYCIN PER PHARMACY PER PROTOCOL XX ; Start 10/12/18 at 19:00 Albuterol/ Ipratropium (Duoneb) 3 ml Q4H RESP THERAPY PRN HHN SHORTNESS OF BREATH; Start 10/12/18 at 19:00 Losartan Potassium (Cozaar) 50 mg DAILY PO Last administered on 10/15/18 09:48; Admin Dose 50 MG; Start 10/13/18 at 09:00 Hydrochlorothiazide (Hydrochlorothiazide) 12.5 mg DAILY PO Last administered on 10/15/18 09:49; Admin Dose 12.5 MG; Start 10/13/18 at 09:00 Nicotine (Nicoderm 21 Mg/ 24hr) 1 patch DAILY TRANSDERM Last administered on 10/15/18 09:42; Admin Dose 1 PATCH; Start 10/12/18 at 19:00 Miscellaneous Information 1 ea NOTE XX ; Start 10/12/18 at 19:00 Glucose (Glutose) 15 gm Q15M PRN PO DECREASED GLUCOSE; Start 10/12/18 at 19:00 Glucose (Glutose) 22.5 gm Q15M PRN PO DECREASED GLUCOSE; Start 10/12/18 at 19:00 Dextrose (D50w Syringe) 25 ml Q15M PRN IV DECREASED GLUCOSE; Start 10/12/18 at 19:00 Dextrose (D50w Syringe) 50 ml Q15M PRN IV DECREASED GLUCOSE; Start 10/12/18 at 19:00 Glucagon (Glucagen) 1 mg Q15M PRN IM DECREASED GLUCOSE; Start 10/12/18 at 19:00 Glucose (Glutose) 15 gm Q15M PRN BUCCAL DECREASED GLUCOSE; Start 10/12/18 at 19:00 Sodium Hypochlorite (Dakin'S (Dilute )) 1 applic DAILY IRR Last administered on 10/14/18at 08:57; Admin Dose 1 APPLIC; Start 10/13/18 at 09:00 Guaifenesin (Robitussin Liquid Cup) 200 mg Q4H PRN PO cough; Start 10/13/18 at 11:30 Insulin Aspart (Novolog Insulin Pen) 10 unit WITH MEALS SC Last administered on 10/15/18at 12:52; Admin Dose 10 UNIT; Start 10/13/18 at 18:00 Vancomycin HCl 1.25 gm/Sodium Chloride 250 ml @ 83.333 mls/ hr Q12H IVPB Last administered on 10/15/18at 06:49; Admin Dose 83.333 MLS/HR; Start 10/14/18 at 18:00 Miscellaneous Information (*Rx Drug Level Order Reminder*) VANCO TROUGH @ 1,700 ONCE ONCE XX ; Start 10/16/18 at 17:00; Stop 10/16/18 at 17:01 REGINO PATEL MD Oct 15, 2018 13:51
[2018-10-15 14:30] VITALS: BP 125/66; PULSE 82; RESP 18
[2018-10-15 20:00] VITALS: BP 118/66; PULSE 86; RESP 18
[2018-10-15] MEDS: ATORVASTATIN 40 MG TAB PO SCH (21:00)
[2018-10-16] MEDS: PIPER-TAZO 3.375 GM IV (PMX) 100 ML IVPB SCH ×3 (00:18→12:28)
[2018-10-16 02:00] VITALS: BP 126/70; PULSE 82; RESP 18
--- NOTE | 2018-10-16 07:37 | NUR ---
End of Shift Summary: S/P Debridement of right toe on 10/[address] Fischer Pt is A&O x4. Vital signs within normal limits. No acute changes. Respiratory and hemodynamics remain stable. Patient denies chest pain, palpitations, shortness of breath, nausea, vomiting, headache, cough, or changes in bowel/bladder habits. Blood sugar level of 125. Novolog coverage required. Pt received lantus 40 units. Carb controlled snacks provided (String cheese and 1/2 soda) IV site is intact and asystematic. IV fluids and IVPB infusing as ordered. Pt refused Geodon 40mg medication, stating it causes dizziness. Dressing change done by Dr. Fischer. Pt denies pain throughout the shift. Safety precautions maintained throughout the shift. Bed in lowest position and bed alarm activated. Call light within reach. Hourly rounding rendered. All needs met.
[2018-10-16] MEDS: INSULIN ASPART [NOVOLOG] 3 ML PEN SC SCH ×4 (08:00→12:32)
--- NOTE | 2018-10-16 08:01 | NUR ---
CHRISTIANA NOTE: HH Order received for HH wound care. S/W pt at bedside regarding demographic information on face sheet. Per pt address is incorrect. Correct address [address] [place] [address]. Phone number for transitional housing (P:[phone]). Called [facility] and spoke with Ana Luisa Erazo with [facility] who states that she will speak with her counter supervisor to ensure that HH is allowed in the facility. Ana Luisa to f/u with christiana. Gilson Arauz RN CM [id number] Addendum: 10/16/18 at 1033 by ALBA ARAUZ CM Received call from Ana Luisa Erazo regarding HH, Per Ana Luisa, HH can not be provided at the [facility]. Dr.Rahi hirsch.
[2018-10-16] MEDS: SODIUM HYPOCHLORITE (1/40) 1 APPLIC BTL IRR SCH (08:25)
[2018-10-16] MEDS: TIOTROPIUM 18 MCG CAPSULE INHA DEV INH SCH (08:27)
[2018-10-16] MEDS: LOSARTAN 50 MG TAB PO SCH (08:28)
[2018-10-16] MEDS: HYDROCHLOROTHIAZIDE 12.5 MG CAP PO SCH (08:28)
[2018-10-16] MEDS: NICOTINE (21 MG/24 HR) PATCH TRANSDERM SCH (08:29)
[2018-10-16] MEDS: INSULIN GLARGINE [LANTus] (100 UNITS/ML) SYG SC SCH (08:30)
[2018-10-16] MEDS: ZIPRASIDONE 20 MG CAP PO SCH (08:31)
[2018-10-16] MEDS: ENOXAPARIN 30 MG/0.3 ML SYG SC SCH (08:31)
[2018-10-16] MEDS: VANCOMYCIN 1.25 GM in SOD CHLORIDE 0.9% 250 ML IVPB SCH (10:21)
--- NOTE | 2018-10-16 12:28 | PDOCDIS ---
Discharge Instructions CONDITION [id number] Patient Condition: [id number] Stable HOME CARE INSTRUCTIONS: [id number] Special Diet: [id number] carb control ACTIVITY: [id number] Activity Restrictions: [id number] Slowly Increase Activity Rest between Activity Avoid heavy lifting FOLLOW UP/APPOINTMENTS Follow-up Plan Please make sure you follow-up with the straightener and aligner at the [facility] clinic in the next 2-3 days. Also see your regular doctor in the clinic in the next 1-2 weeks, take your medications as prescribed as well. HEATHER MANCINI. Oct 16, 2018 12:28
[2018-10-16] MEDS ORDERED: GUAI-637 PO (12:31)
[2018-10-16] MEDS ORDERED: LEVO750T25 PO (12:31)
[2018-10-16] MEDS ORDERED: NICO-546 TRANSDERM (12:31)
[2018-10-16] MEDS ORDERED: HYDR12.53 PO (12:31)
[2018-10-16] MEDS ORDERED: AMPI500C9 PO (12:31)
[2018-10-16] MEDS ORDERED: LOSA50TA2 PO (12:31)
--- NOTE | 2018-10-16 12:36 | DS ---
Date/Time of Note Date/Time of Note DATE: 10/16/18 TIME: 12:32 Discharge Summary Admission/Discharge Info Admit Date/Time Oct 12, 2018 at 17:33 Discharge Date/Time Discharge Diagnosis #R leg cellulitis #Cough -resolving #IDDM -initially found with Hyperglycemia, sugars now improved #HTN #Schizophrenia #Smoker Patient Condition: Stable Hx of Present Illness 48 yo man with history of IDDM who presents with two weeks of cough and leg pain. He was in his usual state of health until 2 weeks ago. At that time he developed cough productive of "fluorescent green" sputum and mild shortness of breath. He hasn't taken much for the cough except lozenges, which haven't helped. Also had intermittent fever during this time. He also developed R mid quintanilla redness and swelling and pain. 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 During this time he's had subjective fevers. He's had diabetes for several years and has multiple toe amputations on the L foot, on the R foot he had a great toe amputation. All are over a year old. He presented to the [facility] where he was found to have glucose 575, otherwise labs unremarkable. He was given insulin and started on vanco/zosyn. His insurance capitated him to [facility] so he was transferred here for admission. Hospital Course So patient was admitted, seen by podiatry team during this hospital stay. He was found with a right lower extremity cellulitis and also purulent drainage from the lower extremity area. His wound culture had polymicrobial growth. He was placed on antibiotics for that. He underwent a debridement procedure by the podiatry team, tolerated it well. He was counseled on smoking cessation and placed on nicotine patch. He was found with an A1c of 13.4. He was placed on appropriate insulin regimen and sugars improved with this regimen. He worked with physical therapy, vital signs are stable on day of discharge. No fevers. He was encouraged to continue wound care at home for the next few days until he follows up at the [facility] clinic and we will provide him with the information so he can set up an appointment for that in the next 2-3 days. See below for full list of discharge medications. Home Meds Active Scripts Ampicillin* (Ampicillin*) 500 Mg Cap, 500 MG PO TID for 10 Days, #30 CAP Prov:HEATHER MANCINI S. 10/16/18 Levofloxacin* (Levaquin*) 750 Mg Tablet, 750 MG PO DAILY, #10 TAB Prov:HEATHER MANCINI S. 10/16/18 Guaifenesin (Guaifenesin) 100 Mg/5 Ml Liquid, 200 MG PO Q4H PRN for cough, #1 BOTTLE Prov:HEATHER MANCINI S. 10/16/18 Hydrochlorothiazide (Hydrochlorothiazide) 12.5 Mg Capsule, 12.5 MG PO DAILY, #30 CAP 3 Refills Prov:HEATHER MANCINI S. 10/16/18 Losartan Potassium* (Cozaar*) 50 Mg Tablet, 50 MG PO DAILY, #30 TAB 3 Refills Prov:HEATHER MANCINI S. 10/16/18 Nicotine* (Nicotine* Patch) 21 mg/day Patch, 1 PATCH TRANSDERM DAILY, #1 BOTTLE 3 Refills Prov:HEATHER MANCINI S. 10/16/18 Reported Medications Insulin Glargine* (Lantus*) 100 Unit/Ml Soln, 40 UNIT SC AC BREAKFAST BEDTIME, #1 VIAL 10/12/18 Metformin* (Glucophage*) 1,000 Mg Tablet, 1000 MG PO BID, #60 TAB 10/12/18 Atorvastatin* (Atorvastatin*) 40 Mg Tablet, 40 MG PO QHS, #30 TAB 10/12/18 Tiotropium Sherman* (Spiriva*) 18 Mcg Cap.w.dev, 1 CAP INHALATION DAILY, #30 CAP 10/12/18 Ziprasidone* (Geodon*) 20 Mg Capsule, 20 MG PO DAILY, CAP 10/12/18 Follow-up Plan Please make sure you follow-up with the cafeteria manager at the [facility] clinic in the next 2-3 days. Also see your regular doctor in the clinic in the next 1-2 weeks, take your medications as prescribed as well. Primary Care Provider Not On Staff Doctor Pending Labs Laboratory Tests Test 10/15/18 17:19 10/15/18 21:35 10/16/18 05:46 10/16/18 07:52 Bedside 234 125 120 Glucose mg/dL (70-220) mg/dL (70-220) mg/dL (70-220) White Blood 8.2 Count 10^3/ul (4.8-1 0.8) Red Blood 5.04 Count 10^6/ul (4.70- 6.10) Hemoglobin 13.8 g/dl (14.0-18. 0) Hematocrit 43.8 % (42.0-52.0) Mean 86.9 Corpuscular fl (82.0-101.0 Volume ) Mean 27.4 Corpuscular pg (29.0-33.0) Hemoglobin Mean 31.5 Corpuscular g/dl (32.0-37. Hemoglobin Conc 0) ent Red Cell 14.5 Distribution % (11.5-14.5) Width Platelet Count 331 10^3/UL (140-4 15) Mean Platelet 9.4 Volume fl (7.4-10.4) Immature 1.800 Granulocytes % % (0.001-0.429 ) Neutrophils % 55.4 % (39.0-77.0) Lymphocytes % 31.3 % (15.0-51.0) Monocytes % 7.3 % (0.0-11.0) Eosinophils % 3.3 % (0.0-7.0) Basophils % 0.9 % (0.0-2.0) Nucleated Red 0.0 Blood Cells % /100WBC (0.0-0 .0) Immature 0.150 Granulocytes # 10^3/ul (0.0-0 .031) Neutrophils # 4.6 10^3/ul (1.6-7 .5) Lymphocytes # 2.6 10^3/ul (0.8-2 .9) Monocytes # 0.6 10^3/ul (0.3-0 .9) Eosinophils # 0.3 10^3/ul (0.0-0 .5) Basophils # 0.1 10^3/ul (0.0-0 .1) Nucleated Red 0.0 Blood Cells # 10^3/ul (0.0-0 .0) Sodium Level 143 mmol/L (135-14 4) Potassium 4.7 Level mmol/L (3.5-5. 1) Chloride Level 101 mmol/L (97-110 ) Carbon Dioxide 36 Level mmol/L (21-31) Anion Gap 6 (5-13) Blood Urea 17 Nitrogen mg/dl (7-20) Creatinine 1.32 mg/dl (0.61-1. 24) Est Glomerular 58 Filtrat mL/min (>60) Rate mL/min Glucose Level 115 mg/dl (70-220) Calcium Level 9.4 mg/dl (8.4-10. 2) Phosphorus 5.2 Level mg/dl (2.5-4.9 ) Magnesium 1.9 Level mg/dl (1.7-2.5 ) HEATHER MANCINI. Oct 16, 2018 12:36
--- NOTE | 2018-10-16 16:00 | NUR ---
DISCHARGE NOTES PT D/C TO HOME VIA WHEELCHAIR ACCOMPANIED BY [facility]. IV REMOVED, CATHETER INTACT. DISCHARGE INSTRUCTIONS . PROVIDED WITH THE OPPORTUNITY TO ASK QUESTIONS. INFORMED PT TO FOLLOW UP WITH PCP IN 1-2 WEEKS. PRESCRIPTION WAS GIVEN TO PT. PT IS TO TAKE MEDICATIONS PRESCRIBED. INFORMED PT TO CALL 911 OR GO TO THE NEAREST EMERGENCY ROOM IF EXPERIENCING CHEST PAIN, SHORTNESS OF BREATH, DIFFICULTY SPEAKING, VISION CHANGES, CONFUSION,OR ANY DISCOMFORT. PT VERBALIZES UNDERSTANDING OF DISCHARGE INSTRUCTIONS. PT ALERT, ORIENTED, AND STABLE UPON DISCHARGE
[2018-10-16] MEDS ORDERED: VANCOMYCIN 1.25 GM in SOD CHLORIDE 0.9% 250 ML IVPB SCH (23:00)
== END 2018-10-16 16:10 | disposition home or self-care (01) | DRG 623 ==
LOC: 2NE 17:33
PROVIDERS: ADMIT Internal Medicine; ATTEND Hospitalist
PROC: 0JBQ0ZZ Excision of Right Foot Subcutaneous Tissue and Fascia, Open Approach (ICD-10-PCS; principal; 2018-10-12)
PROC: 0JBR0ZZ Excision of Left Foot Subcutaneous Tissue and Fascia, Open Approach (ICD-10-PCS; 2018-10-12)
DX: E11.621 Type 2 diabetes mellitus with foot ulcer (principal); L03.115 Cellulitis of right lower limb; R05 Cough; E11.65 Type 2 diabetes mellitus with hyperglycemia; I10 Essential (primary) hypertension; F20.9 Schizophrenia, unspecified; F17.200 Nicotine dependence, unspecified, uncomplicated; J44.9 Chronic obstructive pulmonary disease, unspecified; B35.1 Tinea unguium; E11.42 Type 2 diabetes mellitus with diabetic polyneuropathy; Z89.411 Acquired absence of right great toe; Z89.422 Acquired absence of other left toe(s)
CPT/HCPCS: 71045; 73630; 80048; 80053; 80061; 80202; 82962; 83036; 83735; 84100; 84443; 85025; 85651; 86140; 87040; 87070; 87081; 93922; 93970; J1650; J1815; J2270; J2543; J3370; J7040; J7050

== ENCOUNTER 2019-06-07 11:05 | Inpatient (IN) | payer OTHER ==
[~2019-06-07] VITALS: Ht 180.3 cm; Wt 135.9 kg
[~2019-06-07 11:05] MED LIST: AMPI500C9 PO; ATOR40TA68 PO; CLIN300C10 PO; GUAI-637 PO; HYDR-4011 PO; HYDR12.53 PO; LANT3I SC; LEVO500T48 PO; LEVO750T25 PO; LOSA50TA2 PO; MTF1000T PO; NICO-546 TRANSDERM; TIOT18CA INHALATION; ZIPR20CA24 PO
[2019-06-07] MEDS ORDERED: SODIUM CHLORIDE 0.9% 1L BAG IV* STA (12:02)
[2019-06-07] MEDS ORDERED: VANCOMYCIN 1 GM (PMX) 250 ML IVPB STA (12:50)
[2019-06-07] MEDS ORDERED: PIPER-TAZO 3.375 GM IV (PMX) 100 ML IVPB STA (12:50)
[2019-06-07] MEDS ORDERED: ONDANSETRON 4 MG INJ IV PRN ×2 (14:00→16:00)
[2019-06-07] MEDS ORDERED: ACETAMINOPHEN 325 MG TAB PO PRN (14:00)
[2019-06-07] MEDS ORDERED: GLUCOSE GEL 15 GRAM TUBE BUCCAL PRN ×2 (14:30→16:00)
[2019-06-07] MEDS ORDERED: DEXTROSE 50% 50 ML SYRINGE IV PRN ×4 (14:30→16:00)
[2019-06-07] MEDS ORDERED: ACCU-CHEK XX ONE (14:30)
[2019-06-07] MEDS ORDERED: GLUCOSE GEL 15 GRAM TUBE PO PRN ×4 (14:30→16:00)
[2019-06-07] MEDS ORDERED: GLUCAGON 1 MG INJ IM PRN ×2 (14:30→16:00)
[2019-06-07] MEDS ORDERED: INSULIN ASPART [NOVOLOG] 3 ML PEN SC ONE (15:00)
[2019-06-07] MEDS ORDERED: HYDROCODONE/APAP (5/325) TAB PO PRN (16:00)
[2019-06-07] MEDS ORDERED: NACL 0.9% 3 ML SYG IV SCH (16:00)
[2019-06-07] MEDS: NICOTINE (21 MG/24 HR) PATCH TRANSDERM SCH (17:55)
[2019-06-07] MEDS ORDERED: PIPER-TAZO 3.375 GM IV (PMX) 100 ML IVPB SCH (18:00)
[2019-06-07 18:53] VITALS: BP 137/80; PULSE 79; RESP 18
[2019-06-07 20:10] VITALS: BP 146/75; PULSE 81; RESP 20
[2019-06-07] MEDS: ATORVASTATIN 40 MG TAB PO SCH (20:36)
[2019-06-07] MEDS: INSULIN ASPART [NOVOLOG] 3 ML PEN SC SCH (21:39)
[2019-06-07] MEDS: INSULIN GLARGINE [LANTus] (100 UNITS/ML) SYG SC SCH (21:40)
[2019-06-08] MEDS: PIPER-TAZO 3.375 GM IV (PMX) 100 ML IVPB SCH ×4 (00:39→18:06)
[2019-06-08] MEDS: ACCU-CHEK XX SCH (02:00)
[2019-06-08 02:05] VITALS: BP 127/72; PULSE 72; RESP 18
[2019-06-08 02:32] VITALS: Ht 180.3 cm; Wt 135.9 kg
[2019-06-08] MEDS: INSULIN ASPART [NOVOLOG] 3 ML PEN SC SCH ×9 (08:00→21:00)
[2019-06-08 08:20] VITALS: BP 132/64; PULSE 76; RESP 18
[2019-06-08] MEDS: HYDROCHLOROTHIAZIDE 12.5 MG CAP PO SCH (08:30)
[2019-06-08] MEDS: LOSARTAN 50 MG TAB PO SCH (08:30)
[2019-06-08] MEDS: INSULIN GLARGINE [LANTus] (100 UNITS/ML) SYG SC SCH ×2 (08:32→21:31)
[2019-06-08] MEDS: NICOTINE (21 MG/24 HR) PATCH TRANSDERM SCH (08:33)
[2019-06-08] MEDS: ENOXAPARIN 40 MG/0.4 ML SYG SC SCH (08:33)
[2019-06-08] MEDS: TIOTROPIUM 18 MCG CAPSULE INHA DEV INH SCH (08:35)
[2019-06-08 13:42] VITALS: BP 121/69; PULSE 74; RESP 18
[2019-06-08 20:11] VITALS: BP 130/64; PULSE 76; RESP 18
[2019-06-08] MEDS: ATORVASTATIN 40 MG TAB PO SCH (21:24)
[2019-06-09] MEDS: PIPER-TAZO 3.375 GM IV (PMX) 100 ML IVPB SCH ×4 (01:11→18:13)
[2019-06-09] MEDS: ACCU-CHEK XX SCH (02:00)
[2019-06-09 02:12] VITALS: BP 131/72; PULSE 79; RESP 18
[2019-06-09] MEDS: INSULIN ASPART [NOVOLOG] 3 ML PEN SC SCH ×7 (08:00→21:00)
[2019-06-09 08:23] VITALS: BP 116/71; PULSE 51; RESP 16
[2019-06-09] MEDS: TIOTROPIUM 18 MCG CAPSULE INHA DEV INH SCH (08:48)
[2019-06-09] MEDS: HYDROCHLOROTHIAZIDE 12.5 MG CAP PO SCH (08:49)
[2019-06-09] MEDS: LOSARTAN 50 MG TAB PO SCH (08:50)
[2019-06-09] MEDS: NICOTINE (21 MG/24 HR) PATCH TRANSDERM SCH (08:50)
[2019-06-09] MEDS: ENOXAPARIN 40 MG/0.4 ML SYG SC SCH (08:53)
[2019-06-09] MEDS: INSULIN GLARGINE [LANTus] (100 UNITS/ML) SYG SC SCH ×2 (08:54→21:41)
[2019-06-09 14:44] VITALS: BP 119/65; PULSE 77; RESP 18
[2019-06-09 20:13] VITALS: BP 136/70; PULSE 87; RESP 18
[2019-06-09] MEDS: ATORVASTATIN 40 MG TAB PO SCH (21:36)
[2019-06-10] MEDS: PIPER-TAZO 3.375 GM IV (PMX) 100 ML IVPB SCH ×5 (00:11→23:30)
[2019-06-10] MEDS: ACETAMINOPHEN 325 MG TAB PO PRN ×2 (00:21→23:55)
[2019-06-10] MEDS: ACCU-CHEK XX SCH (02:00)
[2019-06-10 02:48] VITALS: BP 136/75; PULSE 75; RESP 20
[2019-06-10 07:58] VITALS: BP 121/64; PULSE 79; RESP 17
[2019-06-10] MEDS: INSULIN ASPART [NOVOLOG] 3 ML PEN SC SCH ×7 (08:00→21:00)
[2019-06-10] MEDS: NICOTINE (21 MG/24 HR) PATCH TRANSDERM SCH (08:28)
[2019-06-10] MEDS: LOSARTAN 50 MG TAB PO SCH (08:29)
[2019-06-10] MEDS: HYDROCHLOROTHIAZIDE 12.5 MG CAP PO SCH (08:29)
[2019-06-10] MEDS: INSULIN GLARGINE [LANTus] (100 UNITS/ML) SYG SC SCH ×2 (08:37→20:44)
[2019-06-10] MEDS: ENOXAPARIN 40 MG/0.4 ML SYG SC SCH (08:37)
[2019-06-10] MEDS: TIOTROPIUM 18 MCG CAPSULE INHA DEV INH SCH (08:39)
[2019-06-10 14:50] VITALS: BP 141/69; PULSE 82; RESP 18
[2019-06-10] MEDS: ATORVASTATIN 40 MG TAB PO SCH (20:40)
[2019-06-10 20:58] VITALS: BP 111/67; PULSE 91; RESP 18
[2019-06-11] VITALS (13 sets, daily range): BP systolic 104–133; BP diastolic 55–83; PULSE 74–90; RESP 13–20
[2019-06-11] MEDS: ACCU-CHEK XX SCH (02:00)
[2019-06-11] MEDS: PIPER-TAZO 3.375 GM IV (PMX) 100 ML IVPB SCH ×4 (05:38→23:56)
[2019-06-11] MEDS ORDERED: LIDOCAINE 2% (SDV) 5 ML INJ ONE (07:45)
[2019-06-11] MEDS ORDERED: PROPOFOL 20 ML ONE (07:45)
[2019-06-11] MEDS ORDERED: SEVOFLURANE 15 MIN ONE (07:45)
[2019-06-11] MEDS ORDERED: MIDAZOLAM 1 MG/ML 2 ML INJ ONE (07:46)
[2019-06-11] MEDS ORDERED: FENTAnyl 50 MCG/ML VIAL ONE (07:46)
[2019-06-11] MEDS ORDERED: EPHEDrine 25 MG/5 ML SYG ONE (08:38)
[2019-06-11] MEDS ORDERED: LIDOCAINE 1% (MPF) 30 ML INJ ONE (08:53)
[2019-06-11] MEDS ORDERED: POLYMYXIN/BACITRACIN 1L IRRIG ONE (08:53)
[2019-06-11] MEDS ORDERED: hydrALAzine 20 MG INJ IV PRN (09:00)
[2019-06-11] MEDS ORDERED: HYDROmorphONE 1 MG/5 ML IV SYRINGE IV PRN ×3 (09:00)
[2019-06-11] MEDS ORDERED: MEPERIDINE 25 MG INJ IV PRN (09:00)
[2019-06-11] MEDS: ENOXAPARIN 40 MG/0.4 ML SYG SC SCH (09:00)
[2019-06-11] MEDS ORDERED: ONDANSETRON 4 MG INJ IV PRN (09:00)
[2019-06-11] MEDS: NICOTINE (21 MG/24 HR) PATCH TRANSDERM SCH (09:00)
[2019-06-11] MEDS ORDERED: DIPHENHYDRAMINE 50 MG INJ IV PRN (09:00)
[2019-06-11] MEDS ORDERED: METOCLOPRAMIDE 10 MG INJ IV PRN (09:00)
[2019-06-11] MEDS: TIOTROPIUM 18 MCG CAPSULE INHA DEV INH SCH (09:00)
[2019-06-11] MEDS ORDERED: LABETALOL HCL 20MG INJ IV PRN (09:00)
[2019-06-11] MEDS ORDERED: EPHEDrine 25 MG/5 ML SYG IV PRN (09:00)
[2019-06-11] MEDS ORDERED: FENTAnyl 50 MCG/ML VIAL IV PRN ×3 (09:00)
[2019-06-11] MEDS ORDERED: MIDAZOLAM 1 MG/ML 2 ML INJ IV PRN (09:00)
[2019-06-11] MEDS ORDERED: VANCOMYCIN 1 GM INJ ONE (09:01)
[2019-06-11] MEDS ORDERED: TOBRAMYCIN 1.2 GM POWDER ONE (09:02)
[2019-06-11] MEDS: LOSARTAN 50 MG TAB PO SCH (11:11)
[2019-06-11] MEDS: HYDROCHLOROTHIAZIDE 12.5 MG CAP PO SCH (11:11)
[2019-06-11] MEDS: INSULIN GLARGINE [LANTus] (100 UNITS/ML) SYG SC SCH ×2 (11:14→21:37)
[2019-06-11] MEDS: INSULIN ASPART [NOVOLOG] 3 ML PEN SC SCH ×7 (11:15→21:00)
[2019-06-11] MEDS: SOD CHLORIDE 0.9% 1,000 ML IV SCH (16:17)
[2019-06-11] MEDS: ACETAMINOPHEN 325 MG TAB PO PRN (20:21)
[2019-06-11] MEDS: ATORVASTATIN 40 MG TAB PO SCH (21:29)
[2019-06-11] MEDS: HEPARIN 5,000 UNIT/1 ML VIAL SC SCH (21:38)
[2019-06-12 01:46] VITALS: BP 100/59; PULSE 76; RESP 17
[2019-06-12] MEDS: ACCU-CHEK XX SCH (02:00)
[2019-06-12] MEDS: SOD CHLORIDE 0.9% 1,000 ML IV SCH ×3 (05:12→21:39)
[2019-06-12] MEDS: PIPER-TAZO 3.375 GM IV (PMX) 100 ML IVPB SCH (05:14)
[2019-06-12] MEDS: ACETAMINOPHEN 325 MG TAB PO PRN ×2 (05:23→20:12)
[2019-06-12 07:48] VITALS: BP 116/76; PULSE 76; RESP 20
[2019-06-12] MEDS: INSULIN ASPART [NOVOLOG] 3 ML PEN SC SCH ×7 (08:00→20:18)
[2019-06-12] MEDS: HEPARIN 5,000 UNIT/1 ML VIAL SC SCH ×2 (08:32→20:38)
[2019-06-12] MEDS: INSULIN GLARGINE [LANTus] (100 UNITS/ML) SYG SC SCH ×2 (08:33→21:42)
[2019-06-12] MEDS: NICOTINE (21 MG/24 HR) PATCH TRANSDERM SCH (08:34)
[2019-06-12] MEDS: TIOTROPIUM 18 MCG CAPSULE INHA DEV INH SCH (08:34)
[2019-06-12] MEDS: HYDROCHLOROTHIAZIDE 12.5 MG CAP PO SCH (13:00)
[2019-06-12 14:10] VITALS: BP 105/52; RESP 18
[2019-06-12] MEDS: CLINDAMYCIN 900 MG (PMX) 50 ML IVPB SCH ×2 (14:48→21:29)
[2019-06-12] MEDS: LEVOFLOXACIN 500 MG TAB PO SCH (15:46)
[2019-06-12 19:32] VITALS: BP 110/59; PULSE 78; RESP 20
[2019-06-12] MEDS: ATORVASTATIN 40 MG TAB PO SCH (20:31)
[2019-06-13 01:06] VITALS: BP 118/68; PULSE 77; RESP 20
[2019-06-13] MEDS: ACCU-CHEK XX SCH (02:00)
[2019-06-13] MEDS: CLINDAMYCIN 900 MG (PMX) 50 ML IVPB SCH ×3 (05:47→22:27)
[2019-06-13] MEDS: LEVOFLOXACIN 500 MG TAB PO SCH (05:49)
[2019-06-13] MEDS: INSULIN ASPART [NOVOLOG] 3 ML PEN SC SCH ×7 (08:00→21:00)
[2019-06-13 08:04] VITALS: BP 136/77; PULSE 72; RESP 18
[2019-06-13] MEDS: ACETAMINOPHEN 325 MG TAB PO PRN ×2 (08:18→15:32)
[2019-06-13] MEDS: HYDROCHLOROTHIAZIDE 12.5 MG CAP PO SCH (08:18)
[2019-06-13] MEDS: INSULIN GLARGINE [LANTus] (100 UNITS/ML) SYG SC SCH ×2 (08:21→22:40)
[2019-06-13] MEDS: HEPARIN 5,000 UNIT/1 ML VIAL SC SCH ×2 (08:21→20:50)
[2019-06-13] MEDS: TIOTROPIUM 18 MCG CAPSULE INHA DEV INH SCH (08:24)
[2019-06-13] MEDS: NICOTINE (21 MG/24 HR) PATCH TRANSDERM SCH (08:25)
[2019-06-13] MEDS: SOD CHLORIDE 0.9% 1,000 ML IV SCH (13:18)
[2019-06-13 14:05] VITALS: BP 125/76; PULSE 78; RESP 18
[2019-06-13 19:57] VITALS: BP 107/59; PULSE 75; RESP 18
[2019-06-13] MEDS: ATORVASTATIN 40 MG TAB PO SCH (20:36)
[2019-06-14] MEDS: ACCU-CHEK XX SCH (02:00)
[2019-06-14 02:41] VITALS: BP 120/58; PULSE 71; RESP 19
[2019-06-14] MEDS: CLINDAMYCIN 900 MG (PMX) 50 ML IVPB SCH ×3 (05:08→22:04)
[2019-06-14] MEDS: SOD CHLORIDE 0.9% 1,000 ML IV SCH (05:09)
[2019-06-14] MEDS: LEVOFLOXACIN 500 MG TAB PO SCH (05:09)
[2019-06-14 07:50] VITALS: BP 110/58; PULSE 68; RESP 18
[2019-06-14] MEDS: HYDROCHLOROTHIAZIDE 12.5 MG CAP PO SCH (08:12)
[2019-06-14] MEDS: HEPARIN 5,000 UNIT/1 ML VIAL SC SCH ×2 (08:15→21:42)
[2019-06-14] MEDS: INSULIN ASPART [NOVOLOG] 3 ML PEN SC SCH ×7 (08:15→21:00)
[2019-06-14] MEDS: INSULIN GLARGINE [LANTus] (100 UNITS/ML) SYG SC SCH ×2 (08:16→21:43)
[2019-06-14] MEDS: NICOTINE (21 MG/24 HR) PATCH TRANSDERM SCH (09:00)
[2019-06-14] MEDS: TIOTROPIUM 18 MCG CAPSULE INHA DEV INH SCH (09:00)
[2019-06-14 15:28] VITALS: BP 124/70; PULSE 75; RESP 17
[2019-06-14 19:41] VITALS: BP 134/69; PULSE 83; RESP 17
[2019-06-14] MEDS: ATORVASTATIN 40 MG TAB PO SCH (21:37)
[2019-06-14] MEDS: ACETAMINOPHEN 325 MG TAB PO PRN (21:52)
[2019-06-15] MEDS: ACCU-CHEK XX SCH (02:00)
[2019-06-15 03:02] VITALS: BP 109/54; PULSE 73; RESP 18
[2019-06-15] MEDS: LEVOFLOXACIN 500 MG TAB PO SCH (06:17)
[2019-06-15] MEDS: CLINDAMYCIN 900 MG (PMX) 50 ML IVPB SCH (06:17)
[2019-06-15] MEDS: INSULIN ASPART [NOVOLOG] 3 ML PEN SC SCH ×4 (08:00→12:00)
[2019-06-15 08:27] VITALS: BP_SYST 127; BP_DIAS 7; BP_DIAS 70; PULSE 79; RESP 18
[2019-06-15] MEDS: INSULIN GLARGINE [LANTus] (100 UNITS/ML) SYG SC SCH (08:44)
[2019-06-15] MEDS: TIOTROPIUM 18 MCG CAPSULE INHA DEV INH SCH (09:00)
[2019-06-15] MEDS: NICOTINE (21 MG/24 HR) PATCH TRANSDERM SCH (09:00)
[2019-06-15] MEDS: HYDROCHLOROTHIAZIDE 12.5 MG CAP PO SCH (10:13)
[2019-06-15] MEDS: HEPARIN 5,000 UNIT/1 ML VIAL SC SCH (10:15)
== END 2019-06-15 13:45 | disposition home or self-care (01) | DRG 623 ==
LOC: E/R 11:05 → 2NE 13:56 → SUATTDRO 13:58
PROVIDERS: ADMIT Internal Medicine; ATTEND Hospitalist
PROC: 0JBR0ZZ Excision of Left Foot Subcutaneous Tissue and Fascia, Open Approach (ICD-10-PCS; principal; 2019-06-07)
PROC: 0JBQ0ZZ Excision of Right Foot Subcutaneous Tissue and Fascia, Open Approach (ICD-10-PCS; 2019-06-07)
PROC: 0KBV0ZZ Excision of Right Foot Muscle, Open Approach (ICD-10-PCS; 2019-06-11)
PROC: 0QTQ0ZZ Resection of Right Toe Phalanx, Open Approach (ICD-10-PCS; 2019-06-11)
PROC: 0JBR0ZZ Excision of Left Foot Subcutaneous Tissue and Fascia, Open Approach (ICD-10-PCS; 2019-06-11)
DX: E11.69 Type 2 diabetes mellitus with other specified complication (principal); M86.8X7 Other osteomyelitis, ankle and foot; Z68.41 Body mass index [BMI] 40.0-44.9, adult; E11.621 Type 2 diabetes mellitus with foot ulcer; E11.65 Type 2 diabetes mellitus with hyperglycemia; E11.42 Type 2 diabetes mellitus with diabetic polyneuropathy; E66.01 Morbid (severe) obesity due to excess calories; Z71.3 Dietary counseling and surveillance; L97.511 Non-pressure chronic ulcer of other part of right foot limited to breakdown of skin; I10 Essential (primary) hypertension; F20.9 Schizophrenia, unspecified; L97.529 Non-pressure chronic ulcer of other part of left foot with unspecified severity; F15.90 Other stimulant use, unspecified, uncomplicated; J44.9 Chronic obstructive pulmonary disease, unspecified; F17.210 Nicotine dependence, cigarettes, uncomplicated; Z89.422 Acquired absence of other left toe(s); Z79.4 Long term (current) use of insulin; Z89.411 Acquired absence of right great toe; Z89.412 Acquired absence of left great toe
CPT/HCPCS: 71045; 73630; 73718; 80048; 80053; 80061; 81003; 82962; 83036; 83605; 83735; 84100; 84443; 84484; 85025; 85610; 85651; 85730; 86140; 87070; 87075; 87102; 88304; 88311; 93922; 97110; 97116; 97161; 97530; J1644; J1650; J1815; J2175; J2250; J2543; J2765; J3010; J3370; J7030; L3260